=== PATIENT | female | born 1990 | race Two or more races ===

== ENCOUNTER 2018-04-22 22:25 | Emergency (ER) | payer OTHER ==
[~2018-04-22] VITALS: Ht 170.2 cm; Wt 121.1 kg
[2018-04-22 22:56] VITALS: Ht 170.2 cm; Wt 121.1 kg
[2018-04-23 00:18] VITALS: BP 122/78
== END 2018-04-23 00:18 | disposition home or self-care (01) ==
LOC: ED 22:25
DX: M54.5 Low back pain (principal); G47.00 Insomnia, unspecified; Z90.49 Acquired absence of other specified parts of digestive tract; V43.52XA Car driver injured in collision with other type car in traffic accident, initial encounter; Y93.I9 Activity, other involving external motion; Y92.411 Interstate highway as the place of occurrence of the external cause; Y99.8 Other external cause status